=== PATIENT | male | born 1985 | race African-American/Black ===

== ENCOUNTER 2016-03-30 09:37 | Emergency (ER) | payer OTHER ==
[2016-03-30 09:43] VITALS: BP 135/66; PULSE 65; TEMP 97.6; BMI 22.7
--- NOTE | 2016-03-30 11:48 | PDOC ---
History of Present Illness - General Chief Complaint: Pain Stated Complaint: LT ANKLE PAIN Time Seen by Provider: 03/30/16 10:11 History Source: Patient Exam Limitations: Language Barrier - History of Present Illness Initial Comments: 03/30/16 11:43 BCC left ankle pain post inversion injury ankle yesterday Occurred: reports: yesterday Severity: reports: mild Pain Location: reports: lower extremity Method of Injury: Yes: direct blow, other (twisted) Past History - Past Medical History Allergies/Adverse Reactions: Allergies Allergy/AdvReac Type Severity Reaction Status Date / Time No Known Allergies Allergy Verified 03/30/16 09:40 Home Medications: Ambulatory Orders NK [No Known Home Medication] 03/30/16 Other medical history: none - Psycho/Social/Smoking Cessation Hx Anxiety: No Suicidal Ideation: No Smoking History: Never smoked Have you smoked in the past 12 months: No Information on smoking cessation initiated: No Hx Alcohol Use: No Drug/Substance Use Hx: No Substance Use Type: None Review of Systems - Review of Systems Constitutional: No: Symptoms Reported HEENTM: No: Symptoms Reported Respiratory: No: Symptoms reported, Cough ABD/GI: No: Symptoms Reported Musculoskeletal: Yes: Joint Pain, Joint Swelling, Joint Stiffness Integumentary: No: Symptoms Reported Neurological: No: Symptoms reported *Physical Exam - Vital Signs Last Vital Signs Temp Pulse Resp BP Pulse Ox 97.6 F 65 18 135/66 100 03/30/16 09:40 03/30/16 09:40 03/30/16 09:40 03/30/16 09:40 03/30/16 09:40 - Physical Exam General Appearance: Yes: Appropriately Dressed. No: Apparent Distress HEENT: positive: TMs Normal, Pharynx Normal Respiratory/Chest: positive: Lungs Clear, Normal Breath Sounds Musculoskeletal: positive: Other (mild STS lateral ankle with tenderness to area of lateral mall.. ambulates well) Extremity: positive: Normal Capillary Refill ED Treatment Course - RADIOLOGY Radiology Studies Ordered: Category Date Time Status ANKLE-LEFT [RAD] Stat Radiology 03/30/16 10:48 Completed Medical Decision Making - Medical Decision Making 03/30/16 11:46 xray= negative; will rest area; advil for pain *DC/Admit/Observation/Transfer Diagnosis at time of Disposition: Strain of left ankle Qualifiers: Encounter type: initial encounter Qualified Code(s): S96.912A - Strain of unspecified muscle and tendon at ankle and foot level, left foot, initial encounter - Discharge Dispostion Disposition: HOME Condition at time of disposition: Stable Admit: No - Referrals Referrals: Kwesi Baer MD [Staff Physician] - - Patient Instructions Additional Instructions: ice area, rest , elevate ankle; see Dr Baer if symptoms worsen - Post Discharge Activity Work/School Note: Back to Work
== END 2016-03-30 11:50 | disposition home or self-care (01) ==
LOC: JERFT 09:37
DX: S96.912A Strain of unspecified muscle and tendon at ankle and foot level, left foot, initial encounter (principal); X58.XXXA Exposure to other specified factors, initial encounter; Y93.9 Activity, unspecified; Y92.9 Unspecified place or not applicable
CPT/HCPCS: 73610-TC-LT; 99281-25

== ENCOUNTER 2017-04-03 20:21 | Emergency (ER) | payer OTHER ==
[2017-04-03] MEDS ORDERED: IBUPROFEN 400 MG TABLET (FP) PO ONE ×2 (20:46→21:02)
--- NOTE | 2017-04-03 20:46 | PDOC ---
Rapid Medical Evaluation Time Seen by Provider: 04/03/17 20:43 Medical Evaluation: Allergies Allergy/AdvReac Type Severity Reaction Status Date / Time No Known Allergies Allergy Verified 03/30/16 09:40 04/03/17 20:43 I have performed a brief in-person evaluation of this patient. The patient presents with a chief complaint of: right shoulder pain s/p slip and fall Pertinent physical exam findings: EXT: No deformity, crepitus or sq air palpated. FROM noted I have ordered the following: xray, motrin The patient will proceed to the ED for further evaluation. Discharge Disposition - Diagnosis Shoulder pain - Referrals - Patient Instructions - Post Discharge Activity
[2017-04-03 20:49] VITALS: BP 115/67; PULSE 62; TEMP 98.6; BMI 22.7
--- NOTE | 2017-04-03 20:57 | PDOC ---
History of Present Illness - General Chief Complaint: Pain Stated Complaint: FALL INJURY Time Seen by Provider: 04/03/17 20:43 History Source: Patient - History of Present Illness Occurred: reports: this morning Upper Extremity Pain Location: right: shoulder Method of Injury: reports: fell Past History - Past Medical History Allergies/Adverse Reactions: Allergies Allergy/AdvReac Type Severity Reaction Status Date / Time No Known Allergies Allergy Verified 04/03/17 20:45 Home Medications: Ambulatory Orders NK [No Known Home Medication] 03/30/16 COPD: No - Suicide/Smoking/Psychosocial Hx Smoking History: Never smoked Have you smoked in the past 12 months: No Information on smoking cessation initiated: No Hx Alcohol Use: No Drug/Substance Use Hx: No Substance Use Type: None Review of Systems - Review of Systems Musculoskeletal: Yes: Joint Pain. No: Joint Swelling *Physical Exam - Vital Signs Last Vital Signs Temp Pulse Resp BP Pulse Ox 98.6 F 62 18 115/67 98 04/03/17 20:46 04/03/17 20:46 04/03/17 20:46 04/03/17 20:46 04/03/17 20:46 - Physical Exam General Appearance: Yes: Appropriately Dressed. No: Apparent Distress HEENT: positive: Normal Voice Neck: positive: Supple Respiratory/Chest: negative: Respiratory Distress Extremity: positive: Normal Inspection, Normal Range of Motion. negative: Tender, Swelling Integumentary: positive: Dry, Warm Neurologic: positive: Fully Oriented, Alert, Normal Mood/Affect Medical Decision Making - Medical Decision Making 04/03/17 20:55 31-year-old male presents with right shoulder pain after slip and fall today while at work, States he fell and used R hand to break fall. No hand/wrist pain. Denies any other injuries. Patient well-appearing and stable with unremarkable exam. Most likely sprain. XR pending. Motrin given at triage 04/03/17 21:41 Xray neg. Dc w/ otc meds as needed for pain *DC/Admit/Observation/Transfer Diagnosis at time of Disposition: Shoulder sprain Qualifiers: Encounter type: initial encounter Shoulder sprain type: unspecified sprain Laterality: right Qualified Code(s): S43.401A - Unspecified sprain of right shoulder joint, initial encounter - Discharge Dispostion Disposition: HOME Condition at time of disposition: Good - Referrals - Patient Instructions Printed Discharge Instructions: DI for Shoulder Sprain - Post Discharge Activity Forms/Work/School Notes: Back to Work
== END 2017-04-03 21:48 | disposition home or self-care (01) ==
LOC: JERFT 20:21
DX: S43.401A Unspecified sprain of right shoulder joint, initial encounter (principal); W00.2XXA Other fall from one level to another due to ice and snow, initial encounter; Y93.89 Activity, other specified; Y92.242 Post office as the place of occurrence of the external cause; Y99.0 Civilian activity done for income or pay
CPT/HCPCS: 73030-TC-RT; 99281-25